=== PATIENT | male | born 1950 | race Caucasian/White ===

== ENCOUNTER 2016-11-17 11:10 | Day surgery (SDC) | payer MEDICARE, MEDICAID ==
--- NOTE | 2016-11-17 09:29 | PCM.OPNOTE ---
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 Ascending colon polyp 2. Transverse colon polyp 3. Sigmoid colon polyp EBL in mLs: 1 Complications: None Condition: Good Free Text/Narrative:: FLUIDS: 600 mL crystalloid INDICATION FOR PROCEDURE: The patient is a 66-year-old man who was referred to me by Dr. Lele Merritt for surveillance colonoscopy for a history of multiple adenomatous colon polyps, including a tubulovillous adenoma with dysplasia at 55 cm. Performing a surveillance colonoscopy and the associated risks of the procedure had been discussed with the patient. The patient found these risks acceptable and agreed to proceed. DESCRIPTION OF PROCEDURE: The patient was taken to the operating room and placed in left lateral decubitus position. After induction of adequate sedation , a digital rectal exam was performed which was unremarkable. An adult Olympus colonoscope was inserted into the rectum and guided under direct visualization to the appendiceal orifice and ileocecal valve. The scope was then slowly withdrawn through the colon. The quality of the prep was good. There was no evidence of angiodysplasias or diverticulum. There were three small polyps noted in the ascending, transverse, and sigmoid colon, they were all removed with cold forceps. The scope was withdrawn into the rectum and retroflexed. There were Grade I internal hemorrhoids. The scope was straightened, the colon was desufflated, and the scope was withdrawn. The patient was awakened from sedation and transferred to the recovery room in stable condition having tolerated the procedure well. POSTOPERATIVE PLAN: A letter will be sent regarding pathology and when his next colonoscopy should be performed. He is to resume his Coumadin in 3 days. He make take Aspirin starting today.
[~2016-11-17 11:10] MED LIST: Lactated Ringers 1,000 ML IV SCH; Lidocaine 1%/Sod Bicarbonate in NS 8.4% 1 ML Syringe IV PRN; Sodium Chloride 0.9% 10 ML Syringe FLUSH PRN
[2016-11-17] MEDS ORDERED: Midazolam 1 MG/ML 2 ML SDV ONE (11:25)
[2016-11-17] MEDS ORDERED: fentaNYL 100 MCG/2 ML SDV ONE (11:26)
[2016-11-17] MEDS ORDERED: Lidocaine 1% 2 ML ONE ×3 (11:26→11:27)
[2016-11-17] MEDS ORDERED: Propofol 200 MG/20 ML SDV ONE (11:27)
--- NOTE | 2016-11-17 11:46 | PCM.PREANE ---
Preanesthetic Assessment - Anesthesia/Transfusion/Family Hx Anesthesia History: Prior Anesthesia Without Reaction Family History of Anesthesia Reaction: No Transfusion History: No Prior Transfusion(s) Intubation History: Unknown - Review of Systems General: No Symptoms Pulmonary: No Symptoms (Former smoker quit 2009/ history of ETOH abuse) Cardiovascular: No Symptoms (atrial fibrillation/ history of cardioversion May 2015/history of HTN) Gastrointestinal: No symptoms (history of adenometous colon polyp) Neurological: No Symptoms (chronic lower back pain) Other: Reports: Easy Bleeding (on coumadin for atrial fibrillation), Easy Bruising, Neck Pain - Physical Assessment NPO Status Date: 11/16/16 NPO Status Time: 21:00 Pulse: 72 O2 Sat by Pulse Oximetry: 94 Respiratory Rate: 16 Blood Pressure: 146/91 Temperature: 35.9 C Height: 1.78 m Weight: 109 kg ASA Class: 2 Mental Status: Alert & Oriented x3 Airway Class: Mallampati = 1 Dentition: Reports: Partial (upper and lower.) Thyro-Mental Finger Breadths: 3 Mouth Opening Finger Breadths: 3 Lungs: Clear to auscultation, Normal respiratory effort Cardiovascular: Regular Rate, Regular Rhythm - Imaging/EKG Impressions: EKG (2014): sinus rhythm borderline left axis deviation Echo (2014): EF 50-55%, Mildly dilated left atrium. - Allergies Allergies/Adverse Reactions: Allergies Allergy/AdvReac Type Severity Reaction Status Date / Time No Known Allergies Allergy Verified 11/16/16 14:45 - Anesthesia Plan Pre-Op Medication Ordered: Beta Oli Beta Oli: Metoprolol Med Last Dose Date: 11/16/16 Med Last Dose Time: 21:00 - Acknowledgements Anesthesia Type Planned: MAC Pt an Appropriate Candidate for the Planned Anesthesia: Yes Alternatives and Risks of Anesthesia Discussed w Pt/Guardian: Yes Pt/Guardian Understands and Agrees with Anesthesia Plan: Yes PreAnesthesia Questionnaire HEENT History: Reports: Other (See Below) Other HEENT History: partials Cardiovascular History: Reports: Afib, High Cholesterol, Hypertension Respiratory History: Reports: None Gastrointestinal History: Reports: Other (See Below) Other Gastrointestinal History: tubular adenoma Genitourinary History: Reports: None [employer] 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 Musculoskeletal History: Reports: Back Pain, Chronic Neurological History: Reports: None Psychiatric History: Reports: Other (See Below) Other Psychiatric History: ETOH abx Endocrine/Metabolic History: Reports: None Hematologic History: Reports: None Immunologic History: Reports: None Oncologic (Cancer) History: Reports: None Dermatologic History: Reports: Other (See Below) Other Dermatologic History: lipoma and inclusion cyst removed - Past Surgical History Head Surgeries/Procedures: Reports: None Cardiovascular Surgical History: Reports: Other (See Below) Other Cardiovascular Surgeries/Procedures: cardioversion GI Surgical History: Reports: Colonoscopy - SUBSTANCE USE Smoking Status *Q: Former Smoker Days Per Week of Alcohol Use: 4 Number of Drinks Per Day: 3 Total Drinks Per Week: 12 Recreational Drug Use History: No - HOME MEDS Home Medications: Home Meds Aspirin [Ecotrin] 81 mg PO DAILY 11/16/16 [History] Chlorthalidone 25 mg PO DAILY 11/16/16 [History] Enalapril [Vasotec] 5 mg PO DAILY 11/16/16 [History] Metoprolol Succinate 50 mg PO DAILY 11/16/16 [History] Multivitamin [Poly-Vitamin] 1 tab PO DAILY 11/16/16 [History] Psyllium Husk/Aspartame [Metamucil Fiber Singles Packet] 1 dose PO DAILY [History] Simvastatin [Simvastatin] 40 mg PO DAILY 11/16/16 [History] Warfarin [Coumadin] 2.5 mg PO MOFR 11/16/16 [History] Warfarin [Coumadin] 5 mg PO SUTUWETHSA 11/16/16 [History] - CURRENT (IN HOUSE) MEDS Current Meds: Current Medications Lactated Ringer's (Ringers, Lactated) 1,000 mls @ 125 mls/hr IV ASDIRECTED RON Stop: 11/17/16 23:00 Lidocaine/Sodium Bicarbonate (Buffered Lidocaine 1% In Ns 8.4%) 0.25 ml IV ONETIME PRN PRN Reason: Prior to IV Start Stop: 11/17/16 18:00 Sodium Chloride (Saline Flush) 10 ml FLUSH ASDIRECTED PRN PRN Reason: Keep Vein Open Stop: 11/17/16 18:00 Discontinued Medications Fentanyl (Sublimaze) Confirm Administered Dose 100 mcg .ROUTE .STK-MED ONE Stop: 11/17/16 11:27 Lidocaine HCl (Xylocaine-Mpf 1%) Confirm Administered Dose 2 mls @ as directed .ROUTE .STK-MED ONE Stop: 11/17/16 11:27 Lidocaine HCl (Xylocaine-Mpf 1%) Confirm Administered Dose 2 mls @ as directed .ROUTE .STK-MED ONE Stop: 11/17/16 11:27 Lidocaine HCl (Xylocaine-Mpf 1%) Confirm Administered Dose 2 mls @ as directed .ROUTE .STK-MED ONE Stop: 11/17/16 11:28 Midazolam HCl (Versed 1 Mg/Ml) Confirm Administered Dose 2 mg .ROUTE .STK-MED ONE Stop: 11/17/16 11:26 Propofol (Diprivan 20 Ml) Confirm Administered Dose 200 mg .ROUTE .STK-MED ONE Stop: 11/17/16 11:28
--- NOTE | 2016-11-17 13:13 | PCM48HPAN ---
Post Anesthesia Note - EVALUATION WITHIN 48HRS OF ANESTHETIC Vital Signs in Normal Range: Yes Patient Participated in Evaluation: Yes Respiratory Function Stable: Yes Airway Patent: Yes Cardiovascular Function Stable: Yes Hydration Status Stable: Yes Pain Control Satisfactory: Yes Nausea and Vomiting Control Satisfactory: Yes Mental Status Recovered: Yes
[2016-11-17 14:04] VITALS: BP 114/61
== END 2016-11-17 13:55 | disposition home or self-care (01) ==
LOC: JD.SDS 11:10
PROVIDERS: ATTEND Surgery
DX: Z12.11 Encounter for screening for malignant neoplasm of colon (principal); K64.8 Other hemorrhoids; F10.10 Alcohol abuse, uncomplicated; I10 Essential (primary) hypertension; E78.2 Mixed hyperlipidemia; I48.0 Paroxysmal atrial fibrillation; Z86.010 Personal history of colon polyps; Z98.890 Other specified postprocedural states; Z79.01 Long term (current) use of anticoagulants; Z79.82 Long term (current) use of aspirin; Z79.899 Other long term (current) drug therapy; Z87.891 Personal history of nicotine dependence
CPT/HCPCS: 36415; 85610; 88305; G0105; J2250; J3010; J7120; J2704

== ENCOUNTER 2018-10-23 00:28 | Inpatient (IN) | payer MEDICARE, MEDICAID ==
[2018-10-23] MEDS ORDERED: Adenosine 6 MG/2 ML SDV ONE (00:38)
[2018-10-23] MEDS ORDERED: Adenosine 12 MG/4 ML SDV ONE (00:47)
--- NOTE | 2018-10-23 01:06 | EDM.PDOC ---
ED HPI GENERAL MEDICAL PROBLEM - General Stated Complaint: [facility] ambulance Time Seen by Provider: 10/23/18 00:38 Source of Information: Reports: Patient, RN Notes Reviewed History Limitations: Reports: No Limitations - History of Present Illness INITIAL COMMENTS - FREE TEXT/NARRATIVE: The patient is brought to the ED by EMS from [facility]. The patient states that he developed heartburn around 23:30, while trying to sleep. Paperwork from [facility] provides a past medical history, but no input as to what prompted them to send the patient to the ED. The patient denies having recent chest pain, palpitations, dyspnea, nausea, or vomiting. He reports feeling diaphoretic about 30 minutes prior to arrival to the ED, and he mentions that he feels like he needs to have a bowel movement. No prior similar symptoms. Upon arrival to the ED, his initial ECG indicates that the patient is in SVT at 160 bpm. The patient has not been to this ED in the past, but paperwork from [facility] indicates that he has a history of paroxysmal atrial fibrillation. 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 His medical record indicates that he is on Eliquis, digoxin, and metoprolol, among other medicines. The patient is DNR/DNI. The patient's PCP is Dr. Clifford. Left Back Pain Score (Numeric/FACES): 6 - Related Data Allergies Allergy/AdvReac Type Severity Reaction Status Date / Time No Known Allergies Allergy Verified 10/23/18 00:59 Home Meds: Home Meds Aspirin [Ecotrin] 81 mg PO DAILY 11/16/16 [History] Enalapril [Vasotec] 5 mg PO DAILY 11/16/16 [History] Metoprolol Succinate 50 mg PO DAILY 11/16/16 [History] Simvastatin 40 mg PO DAILY 11/16/16 [History] Acetaminophen 650 mg PO Q6HR PRN 10/23/18 [History] Apixaban [Eliquis] 5 mg PO BID 10/23/18 [History] Bisacodyl [Dulcolax] 10 mg RECTAL ONETIME PRN 10/23/18 [History] Dexamethasone 4 mg PO DAILY 10/23/18 [History] Diclofenac Sodium [Voltaren 1% Gel] 2 gm TOP BID 10/23/18 [History] Digoxin 25 mcg PO DAILY 10/23/18 [History] Diphenhyd/Lidocaine/Nystatin [Magic Mouthwash] 10 ml PO TID 10/23/18 [History] Ibuprofen 400 mg PO Q8H 10/23/18 [History] Insulin Detemir [Levemir Flextouch] 15 units SQ BEDTIME 10/23/18 [History] Ipratropium [place] 1 dose INH Q4H PRN 10/23/18 [History] Ipratropium [place] 1 dose INH TID 10/23/18 [History] Levalbuterol HCl [Xopenex] 3 ml PO TID 10/23/18 [History] Morphine [Morphine 20 MG/ML Soln] 0.25 ml PO Q2H PRN 10/23/18 [History] Multivit-Min/FA/Lycopene/Lut [Certavite Sr-Antioxidant Tab] 1 tab PO DAILY 10/23 [History] Polyethylene Glycol 3350 [MiraLAX] 17 gm PO DAILY 10/23/18 [History] fentaNYL [Duragesic] 150 mcg TOP Q72H 10/23/18 [History] Past Medical History HEENT History: Reports: Other (See Below) Other HEENT History: partials Cardiovascular History: Reports: Afib (paroxysmal), High Cholesterol, Hypertension Gastrointestinal History: Reports: Colon Polyp Musculoskeletal History: Reports: Fracture (thoracic compression fracture) Psychiatric History: Reports: Addiction (alcohol) Endocrine/Metabolic History: Reports: Diabetes, Type II Oncologic (Cancer) History: Reports: Lung (with metastases to bone) - Past Surgical History Cardiovascular Surgical History: Reports: Other (See Below) (Right Port-A-Cath) GI Surgical History: Reports: Colonoscopy Social & Family History - Tobacco Use Smoking Status *Q: Former Smoker Years of Tobacco use: 21 Packs/Tins Daily: 1 Month/Year Tobacco Last Used: Quit 1988 - Alcohol Use Alcohol Use History: Yes - Recreational Drug Use Recreational Drug Use: No - Living Situation & Occupation Living situation: Reports: , Extended Care Facility ([facility] assisted) Occupation: Retired ED ROS GENERAL - Review of Systems Review Of Systems: ROS reveals no pertinent complaints other than HPI. ED EXAM, GENERAL - Physical Exam Exam: See Below Exam Limited By: No Limitations General Appearance: Alert, WD/WN, No Apparent Distress Eye Exam: Bilateral Eye: EOMI, Normal Inspection Ears: Normal External Exam, Hearing Loss Nose: Normal Inspection Throat/Mouth: Normal Inspection, Normal Lips, Normal Voice, No Airway Compromise Head: Atraumatic, Normocephalic Neck: Normal Inspection, Full Range of Motion Respiratory/Chest: No Respiratory Distress, No Accessory Muscle Use, Decreased Breath Sounds, Wheezing (expiratory), Other (Barrel chest. Right Port-A-Cath.). No: Crackles, Rhonchi, Stridor, Prolonged Expiration Cardiovascular: No Edema, No Gallop, No JVD, No Murmur, No Rub, Tachycardia ( regular), Other (Thready peripheral pulse) Peripheral Pulses: 1+: Radial (L), Radial (R) GI/Abdominal: Normal Bowel Sounds, Soft, No Organomegaly, No Distention, No Abnormal Bruit, No Mass, Tender (Mild, generalized, non-focal) (Male) Exam: Deferred Rectal (Males) Exam: Deferred Extremities: Normal Inspection, Normal Range of Motion, No Pedal Edema, Normal Capillary Refill Neurological: Alert, Oriented, Normal Cognition, No Motor/Sensory Deficits Psychiatric: Normal Affect Skin Exam: Warm, Intact, Normal Color, No Rash, Diaphoretic EKG INTERPRETATION EKG Date: 10/23/18 Time: 00:33 Rhythm: Other (SVT) Rate (Beats/Min): 160 [place]: Normal P-Wave: Absent QRS: Normal (Normal transition) ST-T: Depressed (accanic-xjllynrr-jrrbqib) QT: Normal Comparison: NA - No Prior EKG Course - Vital Signs Last Recorded V/S: Last Vital Signs Temp 36.3 C 10/23/18 03:37 Pulse 104 H 10/23/18 03:37 Resp 24 H 10/23/18 03:37 BP 90/55 L 10/23/18 03:37 Pulse Ox 96 10/23/18 04:29 - Orders/Labs/Meds Orders: Active Orders 24 hr Category Date Time Status Admission Status [Patient Status] [ADT] Routine ADT 10/23/18 02:04 Active CULTURE BLOOD [BC] Stat Lab 10/23/18 01:55 Received CULTURE BLOOD [BC] Stat Lab 10/23/18 02:00 Received Blood Culture x2 Reflex Set [OM.PC] Stat Oth 10/23/18 01:41 Ordered Medication Orders Acetaminophen (Tylenol) 650 mg PO Q6H PRN PRN Reason: Pain/Fever Last Admin: 10/23/18 03:22 Dose: 650 mg Sodium Chloride (Normal Saline) 1,000 mls @ 150 mls/hr IV ASDIRECTED RON Metoprolol Tartrate (Lopressor) 5 mg IVPUSH Q4H PRN PRN Reason: Tachycardia Labs: Laboratory Tests 10/23/18 10/23/18 10/23/18 Range/Units 00:53 00:53 01:55 WBC 15.73 H (4.23-9.07) K/mm3 RBC 3.89 L (4.63-6.08) M/mm3 Hgb 11.1 L (13.7-17.5) gm/L Hct 36.2 L (40.1-51.0) % MCV 93.1 H (79.0-92.2) fl MCH 28.5 (25.7-32.2) pg MCHC 30.7 L (32.2-35.5) g/dl RDW Std Deviation 61.4 H (35.1-43.9) fL Plt Count 262 (163-337) K/mm3 MPV 9.6 (9.4-12.3) fl Neutrophils % (Manual) 92 H (40-60) % Band Neutrophils % 3 (0-10) % Lymphocytes % (Manual) 5 L (20-40) % Atypical Lymphs % 0 % Immat Monocytes % (Man) 0 Monocytes % (Manual) 0 L (2-10) % Eosinophils % (Manual) 0 L (0.8-7.0) % Basophils % (Manual) 0 L (0.2-1.2) Metamyelocytes % 0 Myelocytes % 0 Promyelocytes % 0 Blast Cells % 0 Plasma Cell % (Manual) 0 Nucleated RBCs 0.0 % Platelet Estimate Adequate RBC Morph Comment Normal Sodium 138 (136-145) mEq/L Potassium 4.4 (3.5-5.1) mEq/L Chloride 100 (98-107) mEq/L Carbon Dioxide 28 (21-32) mEq/L Anion Gap 14.4 (5-15) BUN 27 H (7-18) mg/dL Creatinine 0.6 L (0.7-1.3) mg/dL Est Cr Clr Drug Dosing 123.36 mL/min Estimated GFR (MDRD) > 60 (>60) mL/min BUN/Creatinine Ratio 45.0 H (14-18) Glucose 231 H (80-115) mg/dL Lactic Acid 1.9 (0.4-2.0) mmol/L Calcium 8.9 (8.5-10.1) mg/dL Magnesium 1.8 (1.8-2.4) mg/dl Total Bilirubin 0.3 (0.2-1.0) mg/dL AST 43 H (15-37) U/L ALT 38 (16-63) U/L Alkaline Phosphatase 125 H (46-116) U/L Troponin I < 0.017 (0.00-0.056) ng/mL Total Protein 6.0 L (6.4-8.2) g/dl Albumin 2.0 L (3.4-5.0) g/dl Globulin 4.0 gm/dL Albumin/Globulin Ratio 0.5 L (1-2) Meds: Medications Generic Name Dose Route Start Last Admin Trade Name Freq PRN Reason Stop Dose Admin Acetaminophen 650 mg 10/23/18 02:21 10/23/18 03:22 Tylenol PO 650 mg Q6H PRN Administration Pain/Fever Sodium Chloride 1,000 mls @ 150 mls/hr 10/23/18 05:00 Normal Saline IV ASDIRECTED RON Metoprolol Tartrate 5 mg 10/23/18 02:21 Lopressor IVPUSH Q4H PRN Tachycardia Discontinued Medications Generic Name Dose Route Start Last Admin Trade Name Freq PRN Reason Stop Dose Admin Adenosine Confirm 10/23/18 00:38 10/23/18 01:10 Adenocard Administered 10/23/18 00:39 Not Given Dose 6 mg .ROUTE .STK-MED ONE Adenosine Confirm 10/23/18 00:47 10/23/18 01:10 Adenocard Administered 10/23/18 00:48 Not Given Dose 12 mg .ROUTE .STK-MED ONE Adenosine 12 mg 10/23/18 01:14 10/23/18 00:51 Adenocard IVPUSH 10/23/18 01:15 6 mg NOW ONE Administration Sodium Chloride 500 mls @ 1,000 mls/hr 10/23/18 01:09 10/23/18 01:13 Normal Saline IV 10/23/18 01:38 1,000 mls/hr .BOLUS ONE Administration Azithromycin 500 mg/ Sodium 250 mls @ 250 mls/hr 10/23/18 01:42 10/23/18 03: 20 Chloride IV 10/23/18 02:41 250 mls/hr ONETIME ONE Administration Ceftriaxone Sodium 1 gm/ 100 mls @ 200 mls/hr 10/23/18 01:42 10/23/18 02:04 Sodium Chloride IV 10/23/18 02:11 200 mls/hr ONETIME ONE Administration Sodium Chloride 500 mls @ 1,000 mls/hr 10/23/18 02:02 10/23/18 03:25 Normal Saline IV 10/23/18 02:31 Not Given .BOLUS ONE Sodium Chloride 1,000 mls @ 999 mls/hr 10/23/18 02:21 10/23/18 03:30 Normal Saline IV 10/23/18 03:21 250 mls/hr ONETIME ONE Infusion Sodium Chloride 1,000 mls @ 999 mls/hr 10/23/18 03:21 Normal Saline IV 10/23/18 04:21 ONETIME ONE - Re-Assessments/Exams Free Text/Narrative Re-Assessment/Exam: 10/23/18 00:58 An ECG at the time of arrival indicated SVT at 160 bpm. The patient was given 6 mg of adenosine via his right Port-A-Cath with minimal, if any, discernible underlying atrial activity until a sinus tachycardia developed. 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 The post-adenosine ECG, obtained at 00: 51, demonstrates some ST depressions in the lateral leads, concerning for ischemia. 10/23/18 01:35 Portable chest radiograph reviewed. The cardiac silhouette is within normal limits. No pulmonary vascular congestion. No obvious pleural effusion on the left, but a pleural effusion cannot be excluded on the right, as there is a right lower lobe infiltrate that obscures the right hemidiaphragm. No pneumothorax. Right Port-A-Cath noted. Formal read per the Radiologist pending. The patient is known to have right sided lung cancer, which is likely responsible for the right lower lobe opacity, however, the patient's WBC count is elevated at 15.73 with 3% bandemia, raising the possibility of pneumonia. Additionally, the patient's BP was low upon presentation, which was not unreasonable, given his elevated heart rate, however, it has remained low despite conversion to a sinus rhythm. These findings are concerning for sepsis, therefore I have ordered a lactic acid level and 2 sets of blood cultures, with one of the sets to be obtained via his Port-A-Cath. I will start the patient on empiric ceftriaxone and azithromycin once the blood cultures have been obtained. He is already receiving an IV fluid bolus. 10/23/18 01:[address] Bhatia at 01:45. She accepted the patient for admission to telemetry. 10/23/18 02:03 The patient's systolic blood pressure mary ann about 10 mmHg following a 500 mL bolus of NS. I have ordered a second 500 mL bolus. Departure - Departure Time of Disposition: 01:50 Disposition: Admitted As Inpatient 66 Condition: Fair Clinical Impression: SVT (supraventricular tachycardia), Hypotension, Right lower lobe pulmonary infiltrate, Leukocytosis, Hyperglycemia due to type 2 diabetes mellitus - My Orders Last 24 Hours: My Active Orders 10/23/18 01:41 Blood Culture x2 Reflex Set [OM.PC] Stat 10/23/18 01:55 CULTURE BLOOD [BC] Stat 10/23/18 02:00 CULTURE BLOOD [BC] Stat 10/23/18 02:04 Admission Status [Patient Status] [ADT] Routine - Assessment/Plan Last 24 Hours: My Active Orders 10/23/18 01:41 Blood Culture x2 Reflex Set [OM.PC] Stat 10/23/18 01:55 CULTURE BLOOD [BC] Stat 10/23/18 02:00 CULTURE BLOOD [BC] Stat 10/23/18 02:04 Admission Status [Patient Status] [ADT] Routine
[2018-10-23] MEDS ORDERED: Sodium Chloride 0.9% 500 ML IV ONE ×2 (01:09→02:02)
[2018-10-23] MEDS ORDERED: Adenosine 6 MG/2 ML SDV IVPUSH ONE ×2 (01:10→01:14)
[2018-10-23] MEDS ORDERED: cefTRIAXone 1 GM in Sodium Chloride 0.9% 100 ML IV ONE (01:42)
[2018-10-23] MEDS ORDERED: Azithromycin 500 MG in Sodium Chloride 0.9% 250 ML IV ONE (01:42)
[2018-10-23] MEDS ORDERED: Metoprolol Tartrate 5 MG/5 ML SDV IVPUSH PRN (02:21)
[2018-10-23] MEDS ORDERED: Sodium Chloride 0.9% 1,000 ML IV ONE ×2 (02:21→03:21)
[2018-10-23] MEDS ORDERED: Acetaminophen 325 MG Tab PO PRN ×2 (02:21→08:47)
--- NOTE | 2018-10-23 05:51 | CR ---
Chest: Portable supine view of the chest was obtained. Comparison: No prior chest x-ray is available. Heart is slightly enlarged. Tortuous thoracic aorta is seen. Right-sided infusion catheter is seen. Diffuse increased lung markings are seen. More focal density is noted within the right perihilar region and right lung base. Bony structures are osteopenic. Healing left clavicle fracture is noted. Osteolytic lesion is noted within the right scapula inferior to glenoid. Difficult to exclude minimal pleural effusions. Impression: 1. Increased central lung markings. Difficult to exclude pulmonary vascular congestion. Uncertain how much of this is chronic without old studies. 2. More focal density within the right perihilar and right lower lung base. Difficult to exclude mass or even chronic change or pneumonia. 3. Lytic lesion appears to be present within the right scapula below the glenoid. Healing fracture is noted within the left clavicle. Diagnostic code #9
[2018-10-23] MEDS: Sodium Chloride 0.9% 1,000 ML IV SCH ×4 (06:15→20:43)
--- NOTE | 2018-10-23 06:31 | PCM.HP ---
H&P History of Present Illness - General Date of Service: 10/23/18 Admit Problem/Dx: Admission Diagnosis/Problem Admission Diagnosis/Problem Supraventricular tachycardia Source of Information: Patient, Old Records, Provider, RN, RN Notes Reviewed History Limitations: Reports: No Limitations - History of Present Illness Initial Comments - Free Text/Narative: Jose Khan presents to our ED via ambulance from [facility] in the very early hours of 10/23/18. He reports that he developed heartburn around 20/09/29 while trying to sleep. There is no accompanying paperwork from [facility] indicating why he was sent to the ED. Denies recent chest pain, palpitations , dyspnea, nausea, vomiting. Reports he started to feel diaphoretic about 30 units prior to ED arrival reports he feels like exam a bowel movement. He's never had symptoms like this in the past. Initial EKG in the ED shows SVT at a rate of 160 bpm. [facility] paperwork indicates the patient has a history of paroxysmal A. fib along with right lung cancer which hasn't metastasized to the bone. He is chronically on 4 L of oxygen continuously in the ED temperature 35.8 Celsius. Pulse 150. Respirations 20. Blood pressure 62/48. Pulse ox 94%. Labs are obtained: WBC is elevated at 15.73. Hemoglobin 11.1. Hematocrit 36.2. He is macrocytic. Pulses are good at 262,000. Neutrophils are elevated at 92%. There is 3% band neutrophils noted. Sodium was 138. Potassium 4.4. Chloride 100. Copaxone 28. Anion gap 14.4. BUN is 27. Creatinine 0.6. EGFR greater than 60. Glucose is 231. Calcium 8.9. Magnesium 1.8. AST is 43, ALT 38, alkaline phosphatase 125. Troponin is negative at less than 0.017. Protein 6.0. Albumin is quite low at 2.0. He started on 1 g Rocephin and 500 mg azithromycin. He does have a catheter in place and this was accessed. He was given 6 mg of adenosine an attempt to convert his SVT. This had minimal effect and therefore 12 mg was given. EKG is obtained after adenosine showing some ST depression lateral leads. Lactic acid was obtained and was 1.9. Blood cultures were also obtained. He is given 2 500 mL boluses for his hypotension. Chest x-ray is obtained showing "1. Increased central lung markings. Difficult to exclude pulmonary vascular congestion. Uncertain how much of this is chronic without old studies. 2. More focal density within the right perihilar and right lower lung base. Difficult to exclude mass or even chronic change or pneumonia. 3. Lytic lesion appears to be present within the right scapula below the glenoid. Healing fractures noted within the left clavicle." He carries a history of paroxysmal A. fib, HLD, hypertension, thoracic compression fractures, alcohol addiction, type 2 diabetes, right lung cancer with metastasis to the bone. He does have a Port-A-Cath in place. His resident of [facility]. He is a former smoker. His PCP is Dr. Merritt. Left Back Pain Score (Numeric/FACES): 6 - Related Data Allergies/Adverse Reactions: Allergies Allergy/AdvReac Type Severity Reaction Status Date / Time No Known Allergies Allergy Verified 10/23/18 00:59 Home Medications: Home Meds Aspirin [Ecotrin] 81 mg PO DAILY 11/16/16 [History] Enalapril [Vasotec] 5 mg PO DAILY 11/16/16 [History] Metoprolol Succinate 50 mg PO DAILY 11/16/16 [History] Simvastatin 40 mg PO DAILY 11/16/16 [History] Acetaminophen 650 mg PO Q6HR PRN 10/23/18 [History] Apixaban [Eliquis] 5 mg PO BID 10/23/18 [History] Bisacodyl [Dulcolax] 10 mg RECTAL ONETIME PRN 10/23/18 [History] Dexamethasone 4 mg PO DAILY 10/23/18 [History] Diclofenac Sodium [Voltaren 1% Gel] 2 gm TOP BID 10/23/18 [History] Diclofenac Sodium [Voltaren 1%] 4 gm TOP BID PRN 10/23/18 [History] Digoxin 125 mcg PO DAILY 10/23/18 [History] Diphenhyd/Lidocaine/Nystatin [Magic Mouthwash] 10 ml PO TID 10/23/18 [History] Ibuprofen 400 mg PO Q8H PRN 10/23/18 [History] Insulin Detemir [Levemir Flextouch] 15 units SQ BEDTIME 10/23/18 [History] Ipratropium [place] 1 dose INH Q4H PRN 10/23/18 [History] Ipratropium [place] 1 dose INH TID 10/23/18 [History] Levalbuterol HCl [Xopenex] 1 ampule NEB Q4HRRT PRN 10/23/18 [History] Levalbuterol HCl [Xopenex] 3 ml PO TID 10/23/18 [History] Morphine [Morphine 20 MG/ML Soln] 0.25 ml PO Q2H PRN 10/23/18 [History] Multivit-Min/FA/Lycopene/Lut [Certavite Sr-Antioxidant Tab] 1 tab PO DAILY 10/23 [History] Polyethylene Glycol 3350 [MiraLAX] 17 gm PO DAILY 10/23/18 [History] fentaNYL [Duragesic] 150 mcg TOP Q72H 10/23/18 [History] Past Medical History HEENT History: Reports: Other (See Below) Other HEENT History: Dentures: partials Cardiovascular History: Reports: Afib, High Cholesterol, Hypertension Respiratory History: Reports: SOB, Other (See Below) Other Respiratory History: Chronic Oxygen use 2-4 L/NC. Lung Cancer Gastrointestinal History: Reports: Colon Polyp Other Gastrointestinal History: tubular adenoma Genitourinary History: Reports: None DENTAL SCHEDULING COORDINATOR History: Reports: None Musculoskeletal History: Reports: Back Pain, Chronic, Fracture Other Musculoskeletal History: in Thoracic Region. Neurological History: Reports: None Psychiatric History: Reports: Addiction Other Psychiatric History: ETOH and nicotine abuse Endocrine/Metabolic History: Reports: Diabetes, Type II Hematologic History: Reports: None Immunologic History: Reports: None Oncologic (Cancer) History: Reports: Bone, Colon, Lung, Metastatic Dermatologic History: Reports: Other (See Below) Other Dermatologic History: lipoma and inclusion cyst removed - Past Surgical History Head Surgeries/Procedures: Reports: None Cardiovascular Surgical History: Reports: Other (See Below) Other Cardiovascular Surgeries/Procedures: cardioversion GI Surgical History: Reports: Colonoscopy Social & Family History - Tobacco Use Smoking Status *Q: Former Smoker Years of Tobacco use: 40 Packs/Tins Daily: 1 Used Tobacco, but Quit: Yes Month/Year Tobacco Last Used: 2017 - Caffeine Use Caffeine Use: Reports: Coffee - Recreational Drug Use Recreational Drug Use: No - Living Situation & Occupation Living situation: Reports: , Extended Care Facility ([facility]) Occupation: Retired H&P Review of Systems - Review of Systems: Review Of Systems: See Below General: Reports: Malaise, Weakness. Denies: Fever, Chills, Fatigue HEENT: Reports: No Symptoms. Denies: Headaches, Sinus Congestion Pulmonary: Reports: Pleuritic Chest Pain. Denies: Shortness of Breath, Wheezing , Cough, Sputum Cardiovascular: Reports: No Symptoms. Denies: Chest Pain, Palpitations, Dyspnea on Exertion, Orthopnea, Edema Gastrointestinal: Reports: No Symptoms. Denies: Abdominal Pain, Constipation, Diarrhea, Nausea, Vomiting Genitourinary: Reports: No Symptoms Musculoskeletal: Reports: Muscle Pain (Generalized ), Other (Generalized bone pain ) Skin: Reports: No Symptoms Psychiatric: Reports: No Symptoms. Denies: Confusion Neurological: Reports: No Symptoms Hematologic/Lymphatic: Reports: No Symptoms Exam - Exam Exam: See Below - Vital Signs Vital Signs: Last Vital Signs Temp 97.3 F 10/23/18 03:37 Pulse 104 H 10/23/18 03:37 Resp 24 H 10/23/18 03:37 BP 90/55 L 10/23/18 03:37 Pulse Ox 96 10/23/18 04:29 Weight: 164 lb - Exam Quality Assessment: Supplemental Oxygen, DVT Prophylaxis General: Alert, Oriented, Cooperative, Mild Distress HEENT: Conjunctiva Clear, EACs Clear, EOMI, Hearing Intact, Mucosa Moist & [place] , Normal Nasal Septum, Posterior Pharynx Clear, PERRLA Neck: Supple, Trachea Midline Lungs: Normal Respiratory Effort, Decreased Breath Sounds Cardiovascular: Regular Rate, Regular Rhythm GI/Abdominal Exam: Normal Bowel Sounds, Soft, Non-Tender, No Organomegaly, No Distention (Male) Exam: Deferred Rectal (Males) Exam: Deferred Back Exam: Normal Inspection, Decreased Range of Motion Extremities: Normal Inspection, Normal Range of Motion, Non-Tender, No Pedal Edema, Normal Capillary Refill Peripheral Pulses: 2+: Radial (L), Radial (R), Dorsalis Pedis (L), Dorsalis Pedis (R) Skin: Warm, Dry, Intact Neurological: Cranial Nerves Intact (grossly ) - Patient Data Lab Results Last 24 hrs: Laboratory Results - last 24 hr 10/23/18 10/23/18 10/23/18 Range/Units 00:53 00:53 01:55 WBC 15.73 H (4.23-9.07) K/mm3 RBC 3.89 L (4.63-6.08) M/mm3 Hgb 11.1 L (13.7-17.5) gm/L Hct 36.2 L (40.1-51.0) % MCV 93.1 H (79.0-92.2) fl MCH 28.5 (25.7-32.2) pg MCHC 30.7 L (32.2-35.5) g/dl RDW Std Deviation 61.4 H (35.1-43.9) fL Plt Count 262 (163-337) K/mm3 MPV 9.6 (9.4-12.3) fl Neutrophils % (Manual) 92 H (40-60) % Band Neutrophils % 3 (0-10) % Lymphocytes % (Manual) 5 L (20-40) % Atypical Lymphs % 0 % Immat Monocytes % (Man) 0 Monocytes % (Manual) 0 L (2-10) % Eosinophils % (Manual) 0 L (0.8-7.0) % Basophils % (Manual) 0 L (0.2-1.2) Metamyelocytes % 0 Myelocytes % 0 Promyelocytes % 0 Blast Cells % 0 Plasma Cell % (Manual) 0 Nucleated RBCs 0.0 % Platelet Estimate Adequate RBC Morph Comment Normal Sodium 138 (136-145) mEq/L Potassium 4.4 (3.5-5.1) mEq/L Chloride 100 (98-107) mEq/L Carbon Dioxide 28 (21-32) mEq/L Anion Gap 14.4 (5-15) BUN 27 H (7-18) mg/dL Creatinine 0.6 L (0.7-1.3) mg/dL Est Cr Clr Drug Dosing 123.36 mL/min Estimated GFR (MDRD) > 60 (>60) mL/min BUN/Creatinine Ratio 45.0 H (14-18) Glucose 231 H (80-115) mg/dL Lactic Acid 1.9 (0.4-2.0) mmol/L Calcium 8.9 (8.5-10.1) mg/dL Magnesium 1.8 (1.8-2.4) mg/dl Total Bilirubin 0.3 (0.2-1.0) mg/dL AST 43 H (15-37) U/L ALT 38 (16-63) U/L Alkaline Phosphatase 125 H (46-116) U/L Troponin I < 0.017 (0.00-0.056) ng/mL Total Protein 6.0 L (6.4-8.2) g/dl Albumin 2.0 L (3.4-5.0) g/dl Globulin 4.0 gm/dL Albumin/Globulin Ratio 0.5 L (1-2) Mycoplasma pneumon IgM (NEGATIVE) 10/23/18 Range/Units 02:21 WBC (4.23-9.07) K/mm3 RBC (4.63-6.08) M/mm3 Hgb (13.7-17.5) gm/L Hct (40.1-51.0) % MCV (79.0-92.2) fl MCH (25.7-32.2) pg MCHC (32.2-35.5) g/dl RDW Std Deviation (35.1-43.9) fL Plt Count (163-337) K/mm3 MPV (9.4-12.3) fl Neutrophils % (Manual) (40-60) % Band Neutrophils % (0-10) % Lymphocytes % (Manual) (20-40) % Atypical Lymphs % % Immat Monocytes % (Man) Monocytes % (Manual) (2-10) % Eosinophils % (Manual) (0.8-7.0) % Basophils % (Manual) (0.2-1.2) Metamyelocytes % Myelocytes % Promyelocytes % Blast Cells % Plasma Cell % (Manual) Nucleated RBCs % Platelet Estimate RBC Morph Comment Sodium (136-145) mEq/L Potassium (3.5-5.1) mEq/L Chloride (98-107) mEq/L Carbon Dioxide (21-32) mEq/L Anion Gap (5-15) BUN (7-18) mg/dL Creatinine (0.7-1.3) mg/dL Est Cr Clr Drug Dosing mL/min Estimated GFR (MDRD) (>60) mL/min BUN/Creatinine Ratio (14-18) Glucose (80-115) mg/dL Lactic Acid (0.4-2.0) mmol/L Calcium (8.5-10.1) mg/dL Magnesium (1.8-2.4) mg/dl Total Bilirubin (0.2-1.0) mg/dL AST (15-37) U/L ALT (16-63) U/L Alkaline Phosphatase (46-116) U/L Troponin I (0.00-0.056) ng/mL Total Protein (6.4-8.2) g/dl Albumin (3.4-5.0) g/dl Globulin gm/dL Albumin/Globulin Ratio (1-2) Mycoplasma pneumon IgM Negative (NEGATIVE) Result Diagrams: 10/23/18 00:53 10/23/18 00:53 - Problem List (1) End of life care SNOMED Code(s): 924509793, 304297120 ICD Code: Z51.5 - ENCOUNTER FOR PALLIATIVE CARE Status: Acute Priority: High Current Visit: Yes (2) Brain lesion SNOMED Code(s): 837693480 ICD Code: G93.9 - DISORDER OF BRAIN, UNSPECIFIED Status: Acute Priority: High Current Visit: Yes (3) Lytic bone lesions on xray SNOMED Code(s): 569840993 ICD Code: M89.9 - DISORDER OF BONE, UNSPECIFIED Status: Acute Priority: High Current Visit: Yes (4) Hilar mass SNOMED Code(s): 366365398 ICD Code: R91.8 - OTHER NONSPECIFIC ABNORMAL FINDING OF LUNG FIELD Status: Acute Priority: High Current Visit: Yes (5) Pleural effusion SNOMED Code(s): 55046775 ICD Code: J90 - PLEURAL EFFUSION, NOT ELSEWHERE CLASSIFIED Status: Acute Priority: High Current Visit: Yes (6) Adrenal nodule SNOMED Code(s): 471176627 ICD Code: E27.9 - DISORDER OF ADRENAL GLAND, UNSPECIFIED Status: Acute Priority: High Current Visit: Yes (7) Hyperglycemia due to type 2 diabetes mellitus SNOMED Code(s): 130339024262910, 540685346564202 ICD Code: E11.65 - TYPE 2 DIABETES MELLITUS WITH HYPERGLYCEMIA Status: Acute Priority: Medium Current Visit: Yes Qualifiers: Diabetes mellitus rn long term care insulin use: unspecified rn long term care insulin use status Qualified Code(s): E11.65 - Type 2 diabetes mellitus with hyperglycemia (8) Hypotension SNOMED Code(s): 39970248 ICD Code: I95.9 - HYPOTENSION, UNSPECIFIED Status: Acute Priority: High Current Visit: Yes Qualifiers: Hypotension type: unspecified hypotension type Qualified Code(s): I95.9 - Hypotension, unspecified (9) Leukocytosis SNOMED Code(s): 838641348, 231728124 ICD Code: D72.829 - ELEVATED WHITE BLOOD CELL COUNT, UNSPECIFIED Status: Acute Priority: High Current Visit: Yes Qualifiers: Leukocytosis type: unspecified Qualified Code(s): D72.829 - Elevated white blood cell count, unspecified (10) SVT (supraventricular tachycardia) SNOMED Code(s): 4786860 ICD Code: I47.1 - SUPRAVENTRICULAR TACHYCARDIA Status: Resolved Current Visit: No Problem List Initiated/Reviewed/Updated: Yes Orders Last 24hrs: Active Orders 24 hr Category Date Time Status Admission Status [Patient Status] [ADT] Routine ADT 10/23/18 02:04 Active Communication Order [RC] BID Care 10/23/18 02:21 Active Oxygen Therapy [RC] ASDIRECTED Care 10/23/18 04:29 Active CULTURE BLOOD [BC] Stat Lab 10/23/18 01:55 Received CULTURE BLOOD [BC] Stat Lab 10/23/18 02:00 Received METH-RESIST S.AUR,MRSA BY PCR [MOLEC] Routine Lab 10/23/18 05:31 Ordered RESPIRATORY PANEL Routine Lab 10/23/18 02:21 Ordered Acetaminophen [Tylenol] Med 10/23/18 02:21 Active 650 mg PO Q6H PRN Metoprolol Tartrate [Lopressor] Med 10/23/18 02:21 Active 5 mg IVPUSH Q4H PRN Sodium Chloride 0.9% [Normal Saline] 1,000 ml Med 10/23/18 05:00 Active IV ASDIRECTED Blood Culture x2 Reflex Set [OM.PC] Stat Oth 10/23/18 01:41 Ordered Resuscitation Status Routine Resus Stat 10/23/18 02:28 Ordered Medication Orders Acetaminophen (Tylenol) 650 mg PO Q6H PRN PRN Reason: Pain/Fever Last Admin: 10/23/18 03:22 Dose: 650 mg Sodium Chloride (Normal Saline) 1,000 mls @ 150 mls/hr IV ASDIRECTED RON Metoprolol Tartrate (Lopressor) 5 mg IVPUSH Q4H PRN PRN Reason: Tachycardia Assessment/Plan Comment:: I/P: Acute: End of life care -Patient presents to ED due to SVT and is thought to have possible infiltrate as well. -Chest CT scan on 10/23/18: * 1. Numerous lytic rib lesions with soft tissue masses seen on both sides of the chest as noted above * 2. Lytic lesion with soft tissue mass with numerous vertebral bodies most severe at T11 and T12 with paravertebral extension as well as extension into the central canal causing central canal stenosis * 3. Right hilar mass as noted above. Small subpleural nodules right middle lobe possibly metastatic. * 4. Small to moderate-sized bilateral pleural effusions causing compressive atelectasis. * 5. Numerous mediastinal lymph nodes which are abnormal. * 6. Small adrenal nodule with differential including small metastatic lesion versus benign adrenal adenoma. * 7. Lytic lesion with soft tissue mass involving the right scapula. * 8. Other incidental findings as noted above. -Head CT obtained 10/23/18: * 1. 1.0 cm right frontal calvarial lesion. This may represent benign skull lesion versus solitary skull metastasis. * 2. Mild generalized atrophy is seen. No acute intracranial abnormalities identified. * 3. Sinus findings which are felt to be incidental. -Discussed findings with patient and girlfriend. He requests to be made comfort care. -Patient requests hospice consult and would like to go on hospice when he returns to SNF -Will discontinue antibiotics as well as PT/OT. -Pain medications as ordered. -Continue when necessary respiratory treatments. -CM/SW consult -Spiritual care consult -Reportedly stopped chemotherapy a few months ago -Port-a-cath present in right chest -Discontinue lab draws Hypotension -BP 62/48 in ED -Likely exacerbated by SVT -Given two 500mL fluid boluses -Given 2L on floor -IV fluids as ordered Resolved: SVT -Presented to ED with "heartburn" which stared around 2330 -Was found to be in SVT with HR at 160 -Hx/o paroxysmal a-fib -6mg and 12mg adenosine given with conversion -Sinus rhythm on floor. Chronic: Paroxysmal A-fib HLD HTN Colyn Polyps Hx/O ETOH addiction Type II DM Lung cancer wiht metastasis to bone Plan: Admit to medical floor inpatient on telemetry Other orders as indicated above Home medications as ordered PT/OT -> discontinue Code status: DNR/DNI/Comfort care; PCP: Dr. Clifford
[2018-10-23] MEDS ORDERED: Acetaminophen/HYDROcodone 325-5 MG Tab PO PRN (08:44)
[2018-10-23] MEDS ORDERED: Ondansetron 4 MG/2 ML SDV IV PRN (08:44)
[2018-10-23] MEDS ORDERED: Albuterol/Ipratropium 3.0-0.5 MG/3 ML Neb Soln NEB PRN (08:44)
[2018-10-23] MEDS ORDERED: Docusate Sodium 100 MG Cap PO PRN (08:44)
[2018-10-23] MEDS ORDERED: Bisacodyl 5 MG Tab PO PRN (08:44)
[2018-10-23] MEDS ORDERED: Polyethylene Glycol 3350 Powder 17 GM Packet PO PRN (08:44)
[2018-10-23] MEDS ORDERED: Bisacodyl 10 MG Supp RECTAL PRN (08:47)
[2018-10-23] MEDS ORDERED: Ipratropium 0.02% 0.5 MG/2.5 ML Neb Soln INH PRN (08:47)
[2018-10-23] MEDS ORDERED: Ipratropium 0.02% 0.5 MG/2.5 ML Neb Soln INH SCH (09:00)
[2018-10-23] MEDS ORDERED: Ibuprofen 400 MG Tab PO SCH (09:00)
[2018-10-23] MEDS: Levalbuterol HCl 0.63 MG/3 ML Neb NEB SCH ×3 (09:51→20:34)
[2018-10-23] MEDS: Ipratropium 0.02% 0.5 MG/2.5 ML Neb Soln INH SCH ×3 (09:51→20:34)
[2018-10-23] MEDS: Ibuprofen 400 MG Tab PO PRN ×2 (10:00→20:45)
[2018-10-23] MEDS: Apixaban 5 MG Tab PO SCH ×2 (10:00→20:45)
[2018-10-23] MEDS: Metoprolol Succinate 50 MG Tab.ER PO SCH (10:00)
[2018-10-23] MEDS: Digoxin 125 MCG Tab PO SCH (10:00)
[2018-10-23] MEDS: Aspirin 81 MG Tab.EC PO SCH (10:00)
[2018-10-23] MEDS ORDERED: fentaNYL 75 MCG/HR Transdermal Patch TOP SCH (10:00)
[2018-10-23] MEDS: Dexamethasone 4 MG Tab PO SCH (10:00)
[2018-10-23] MEDS ORDERED: Magnesium Sulfate/Water 2 GM in Premix Bag 1 BAG IV ONE (10:47)
[2018-10-23] MEDS: Diphenhydramine/Lidocaine/MagAl/Simethicone 119 ML Bottle PO SCH ×3 (11:07→20:45)
[2018-10-23] MEDS: Diclofenac Sodium 1% Gel 100 GM Tube TOP SCH ×2 (11:07→20:45)
[2018-10-23] MEDS ORDERED: Sodium Chloride 0.9% 10 ML Syringe FLUSH ONE (12:39)
[2018-10-23] MEDS ORDERED: Iopamidol 755 Mg/ML 200 ML Bottle IV ONE ×2 (12:39→13:57)
[2018-10-23] MEDS ORDERED: Sodium Chloride 0.9% 10 ML Syringe FLUSH PRN (13:57)
--- NOTE | 2018-10-23 15:09 | CT ---
Head CT Technique: Multiple axial sections through the brain were obtained. Intravenous contrast was not utilized. Findings: Lucency is noted within the right frontal's skull. This measures about 1.0 cm. No other calvarial abnormality is seen. Visualized sinuses show minimal mucosal thickening with left maxillary sinus which is incidental. Slight mucosal thickening is also seen within the anterior left ethmoid sinus which is incidental. Ventricles along with basal cisterns and sulci over the convexities are mildly prominent. No abnormal parenchymal densities are seen. No evidence of intracranial hemorrhage. No midline shift or mass effect is seen. Impression: 1. 1.0 cm right frontal calvarial lesion. This may represent benign skull lesion versus solitary skull metastasis. 2. Mild generalized atrophy is seen. No acute intracranial abnormality is identified. 3. Sinus findings which are felt to be incidental. Diagnostic code #9 Chemical Research Worker called report to Frankie Segura at 15:00 on 10/23/2018
--- NOTE | 2018-10-23 15:09 | CT ---
CT chest Technique: Multiple axial sections through the chest were obtained. Findings: Soft tissue mass is seen within the right shoulder which causes destruction of a portion of the scapula. This soft tissue mass is incompletely seen but measures at least 6.5 cm in size. Destructive rib lesion is also noted within the right sixth rib. This soft tissue mass causing destruction of the rib measures up to 4.2 cm. Old fracture noted within the fifth and seventh ribs. Additional rib destruction is noted within the sixth rib laterally. This soft tissue mass measures about 11.5 cm in greatest dimension. Smaller area of rib destruction seen within the 10th rib laterally. This soft tissue mass measures 4.0 cm in size. Soft tissue mass causing destruction of the vertebral bodies of T11 and T12 is seen. There is paravertebral extension of the soft tissue mass as well as mild extension into the central canal causing some central canal stenosis. Smaller low lytic lesions are seen within the ninth rib with minimal paravertebral extension noted on the right side. Small lytic lesion is seen within the sixth vertebral body. Severe compression deformity noted of T1 which is felt compatible with pathologic fracture. Lytic lesion is noted within C7. Numerous mediastinal lymph nodes are seen which are abnormal. Coronary artery calcification is seen. Right hilar mass is noted most likely neoplastic in etiology measuring approximately 8.4 cm. Small to moderate sized bilateral pleural effusions are seen with bibasilar atelectasis. Emphysematous change is seen within both lungs. Small subpleural nodule noted within the right middle lobe measuring 9 mm possibly due to small metastatic lesion. Small portion of the visualized upper abdominal structures shows a nodule within the right adrenal gland. Impression: 1. Numerous lytic rib lesions with soft tissue masses seen on both sides of the chest as noted above. 2. Lytic lesions with soft tissue mass within numerous vertebral bodies most severe at T11 and T12 with paravertebral extension as well as extension into the central canal causing central canal stenosis. 3. Right hilar mass as noted above. Small subpleural nodules right middle lobe possibly metastatic. 4. Small to moderate sized bilateral pleural effusions causing compressive atelectasis. 5. Numerous mediastinal lymph nodes which are abnormal. 6. Small adrenal nodule with differential including small metastatic lesion versus benign adrenal adenoma. 7. Lytic lesion with soft tissue mass involving the right scapula. 8. Other incidental findings as noted above. Diagnostic code #9 Signals Collector/Analyst called report to Frankie Booke at 14:58 on 10/23/2018
[2018-10-23] MEDS ORDERED: Diclofenac Sodium 1% Gel 100 GM Tube TOP PRN (16:23)
[2018-10-23] MEDS ORDERED: Levalbuterol HCl 0.63 MG/3 ML Neb NEB PRN (16:23)
[2018-10-23] MEDS ORDERED: Morphine Oral Concentrate 20 MG/ML 30 ML Bottle PO PRN (16:23)
[2018-10-23] MEDS: Insulin Lispro 100 Units/ML 3 ML Vial SUBCUT SCH ×2 (16:56→22:00)
[2018-10-23] MEDS ORDERED: Insulin Glarg,Human.Rec.Analog 100 UNIT/ML ML SUBCUT SCH (21:00)
[2018-10-24] MEDS ORDERED: cefTRIAXone 1 GM in Sodium Chloride 0.9% 100 ML IV SCH (01:00)
[2018-10-24] MEDS ORDERED: Azithromycin 250 MG in Sodium Chloride 0.9% 250 ML IV SCH (01:30)
[2018-10-24] MEDS: Ipratropium 0.02% 0.5 MG/2.5 ML Neb Soln INH SCH ×2 (05:23→13:56)
[2018-10-24] MEDS: Levalbuterol HCl 0.63 MG/3 ML Neb NEB SCH ×2 (05:23→13:56)
[2018-10-24] MEDS: Ibuprofen 400 MG Tab PO PRN (06:07)
[2018-10-24] MEDS: Insulin Lispro 100 Units/ML 3 ML Vial SUBCUT SCH ×2 (06:11→11:17)
[2018-10-24] MEDS ORDERED: Morphine 10 MG/0.5 ML Oral Syringe PO PRN (08:27)
[2018-10-24] MEDS: Apixaban 5 MG Tab PO SCH (08:28)
[2018-10-24] MEDS: Metoprolol Succinate 50 MG Tab.ER PO SCH (08:28)
[2018-10-24] MEDS: Dexamethasone 4 MG Tab PO SCH (08:28)
[2018-10-24] MEDS: Digoxin 125 MCG Tab PO SCH (08:28)
[2018-10-24] MEDS: Aspirin 81 MG Tab.EC PO SCH (08:28)
[2018-10-24] MEDS: Diphenhydramine/Lidocaine/MagAl/Simethicone 119 ML Bottle PO SCH (08:29)
[2018-10-24] MEDS: Diclofenac Sodium 1% Gel 100 GM Tube TOP SCH (08:29)
[2018-10-24 08:30] VITALS: BP 112/68
[2018-10-24] MEDS: Sodium Chloride 0.9% 1,000 ML IV SCH (09:51)
--- NOTE | 2018-10-24 12:58 | PCM.DCSUM1 ---
Discharge Summary - Hospital Course HPI Initial Comments: Jose Khan presents to our ED via ambulance from [facility] in the very early hours of 10/23/18. He reports that he developed heartburn around 20/09/29 while trying to sleep. There is no accompanying paperwork from [facility] indicating why he was sent to the ED. Denies recent chest pain, palpitations , dyspnea, nausea, vomiting. Reports he started to feel diaphoretic about 30 units prior to ED arrival reports he feels like exam a bowel movement. He's never had symptoms like this in the past. Initial EKG in the ED shows SVT at a rate of 160 bpm. [facility] paperwork indicates the patient has a history of paroxysmal A. fib along with right lung cancer which hasn't metastasized to the bone. He is chronically on 4 L of oxygen continuously in the ED temperature 35.8 Celsius. Pulse 150. Respirations 20. Blood pressure 62/48. Pulse ox 94%. Labs are obtained: WBC is elevated at 15.73. Hemoglobin 11.1. Hematocrit 36.2. He is macrocytic. Pulses are good at 262,000. Neutrophils are elevated at 92%. There is 3% band neutrophils noted. Sodium was 138. Potassium 4.4. Chloride 100. Copaxone 28. Anion gap 14.4. BUN is 27. Creatinine 0.6. EGFR greater than 60. Glucose is 231. Calcium 8.9. Magnesium 1.8. AST is 43, ALT 38, alkaline phosphatase 125. Troponin is negative at less than 0.017. Protein 6.0. Albumin is quite low at 2.0. He started on 1 g Rocephin and 500 mg azithromycin. He does have a catheter in place and this was accessed. He was given 6 mg of adenosine an attempt to convert his SVT. This had minimal effect and therefore 12 mg was given. EKG is obtained after adenosine showing some ST depression lateral leads. Lactic acid was obtained and was 1.9. Blood cultures were also obtained. He is given 2 500 mL boluses for his hypotension. Chest x-ray is obtained showing "1. Increased central lung markings. Difficult to exclude pulmonary vascular congestion. Uncertain how much of this is chronic without old studies. 2. More focal density within the right perihilar and right lower lung base. Difficult to exclude mass or even chronic change or pneumonia. 3. Lytic lesion appears to be present within the right scapula below the glenoid. Healing fractures noted within the left clavicle." He carries a history of paroxysmal A. fib, HLD, hypertension, thoracic compression fractures, alcohol addiction, type 2 diabetes, right lung cancer with metastasis to the bone. He does have a Port-A-Cath in place. His resident of [facility]. He is a former smoker. His PCP is Dr. Merritt. Diagnosis: Stroke: No - Discharge Data Discharge Date: 10/24/18 (Admit date: 10/23/18) Discharge Disposition: DC/Tfer to [facility] 03 Condition: Stable - Discharge Diagnosis/Problem(s) (1) End of life care SNOMED Code(s): 478062492, 521836127 ICD Code: Z51.5 - ENCOUNTER FOR PALLIATIVE CARE Status: Acute Priority: High Current Visit: Yes (2) Brain lesion SNOMED Code(s): 288784652 ICD Code: G93.9 - DISORDER OF BRAIN, UNSPECIFIED Status: Acute Priority: High Current Visit: Yes (3) Lytic bone lesions on xray SNOMED Code(s): 621286545 ICD Code: M89.9 - DISORDER OF BONE, UNSPECIFIED Status: Acute Priority: High Current Visit: Yes (4) Hilar mass SNOMED Code(s): 590298667 ICD Code: R91.8 - OTHER NONSPECIFIC ABNORMAL FINDING OF LUNG FIELD Status: Acute Priority: High Current Visit: Yes (5) Pleural effusion SNOMED Code(s): 70962746 ICD Code: J90 - PLEURAL EFFUSION, NOT ELSEWHERE CLASSIFIED Status: Acute Priority: High Current Visit: Yes (6) Adrenal nodule SNOMED Code(s): 782612376 ICD Code: E27.9 - DISORDER OF ADRENAL GLAND, UNSPECIFIED Status: Acute Priority: High Current Visit: Yes (7) Hyperglycemia due to type 2 diabetes mellitus SNOMED Code(s): 014623988668405, 509085580344596 ICD Code: E11.65 - TYPE 2 DIABETES MELLITUS WITH HYPERGLYCEMIA Status: Acute Priority: Medium Current Visit: Yes Qualifiers: Diabetes mellitus shelter insulin use: unspecified shelter insulin use status Qualified Code(s): E11.65 - Type 2 diabetes mellitus with hyperglycemia (8) Hypotension SNOMED Code(s): 50598711 ICD Code: I95.9 - HYPOTENSION, UNSPECIFIED Status: Acute Priority: High Current Visit: Yes Qualifiers: Hypotension type: unspecified hypotension type Qualified Code(s): I95.9 - Hypotension, unspecified (9) Leukocytosis SNOMED Code(s): 386421680, 777951863 ICD Code: D72.829 - ELEVATED WHITE BLOOD CELL COUNT, UNSPECIFIED Status: Acute Priority: High Current Visit: Yes Qualifiers: Leukocytosis type: unspecified Qualified Code(s): D72.829 - Elevated white blood cell count, unspecified (10) SVT (supraventricular tachycardia) SNOMED Code(s): 1564803 ICD Code: I47.1 - SUPRAVENTRICULAR TACHYCARDIA Status: Resolved Current Visit: No - Patient Summary/Data Consults: Consultations 10/23/18 08:44 Consult to Case Management/[employer] [CONS] Routine Consult to Spiritual Care [CONS] Routine Respiratory Care Assess and Treatment [CONS] Routine 10/23/18 16:27 Consult to Hospice [CONS] Routine Labs Pending at D/C: None Recommended Follow-up Testing/Procedures: Follow-up with PCP as needed for comfort care. Follow-up with hospice at SNF as discussed. Hospital Course: I/P: Acute: End of life care -Patient presents to ED due to SVT and is thought to have possible infiltrate as well. -Chest CT scan on 10/23/18: * 1. Numerous lytic rib lesions with soft tissue masses seen on both sides of the chest as noted above * 2. Lytic lesion with soft tissue mass with numerous vertebral bodies most severe at T11 and T12 with paravertebral extension as well as extension into the central canal causing central canal stenosis * 3. Right hilar mass as noted above. Small subpleural nodules right middle lobe possibly metastatic. * 4. Small to moderate-sized bilateral pleural effusions causing compressive atelectasis. * 5. Numerous mediastinal lymph nodes which are abnormal. * 6. Small adrenal nodule with differential including small metastatic lesion versus benign adrenal adenoma. * 7. Lytic lesion with soft tissue mass involving the right scapula. * 8. Other incidental findings as noted above. -Head CT obtained 10/23/18: * 1. 1.0 cm right frontal calvarial lesion. This may represent benign skull lesion versus solitary skull metastasis. * 2. Mild generalized atrophy is seen. No acute intracranial abnormalities identified. * 3. Sinus findings which are felt to be incidental. -Discussed findings with patient and girlfriend. He requests to be made comfort care. -Patient requests hospice consult and would like to go on hospice when he returns to SNF -Will discontinue antibiotics as well as PT/OT. -Pain medications as ordered. -Continue when necessary respiratory treatments. -CM/SW consult -Spiritual care consult -Reportedly stopped chemotherapy a few months ago -Port-a-cath present in right chest -Discontinue lab draws Hypotension, Improved -BP 62/48 in ED; Now 112/68 -Likely exacerbated by SVT -Given two 500mL fluid boluses -Given 2L on floor -IV fluids as ordered Resolved: SVT -Presented to ED with "heartburn" which stared around 2330 -Was found to be in SVT with HR at 160 -Hx/o paroxysmal a-fib -6mg and 12mg adenosine given with conversion -Sinus rhythm on floor. Chronic: Paroxysmal A-fib HLD HTN Colyn Polyps Hx/O ETOH addiction Type II DM Lung cancer wiht metastasis to bone Plan: Admit to medical floor inpatient on telemetry Other orders as indicated above Home medications as ordered PT/OT -> discontinue Code status: DNR/DNI/Comfort care; PCP: Dr. Darrin Garcia was admitted with possible pneumonia. His blood pressure was low and he received multiple fluid boluses along with IV fluids he did respond well to this. He had been in SVT in the emergency room and was converted utilizing adenosine. He did not have any episodes of SVT while here. CT scan was obtained of his chest and noted extensive cancer metastasis with significant destruction of vertebrae and ribs. Head CT was also obtained showing a 1 cm right frontal calvarial lesion. These results were communicated with the patient and his girlfriend. He reports he had stopped treatment for his cancer several weeks ago and was expecting these results. We discussed possible options and ultimately he decided to go comfort care. [facility] would [facility] They also requested that all possible treatment for pneumonia be stopped. Home medications were continued for the time being and these can be addressed once hospice is set up. He was on 5 L of oxygen while here, having increased from 4 L while in the ED. Lab draws were stopped. He was discharged back to [facility] today on comfort care. - Patient Instructions Diet: Usual Diet as Tolerated Activity: Bedrest Driving: Do Not Drive Notify Provider of: Fever, Increased Pain, Nausea and/or Vomiting Other/Special Instructions: Resume home medications as ordered. Follow-up with PCP as needed for comfort care. Hospice consult at SNF. Adjust oxygen as needed for comfort. - Discharge Plan *PRESCRIPTION DRUG MONITORING PROGRAM REVIEWED*: No *COPY OF PRESCRIPTION DRUG MONITORING REPORT IN PATIENT RADHA: No Home Medications: Home Meds Aspirin [Ecotrin] 81 mg PO DAILY 11/16/16 [History] Metoprolol Succinate 50 mg PO DAILY 11/16/16 [History] Acetaminophen 650 mg PO Q6HR PRN 10/23/18 [History] Apixaban [Eliquis] 5 mg PO BID 10/23/18 [History] Bisacodyl [Dulcolax] 10 mg RECTAL ONETIME PRN 10/23/18 [History] Dexamethasone 4 mg PO DAILY 10/23/18 [History] Diclofenac Sodium [Voltaren 1% Gel] 2 gm TOP BID 10/23/18 [History] Diclofenac Sodium [Voltaren 1% Gel] 4 gm TOP BID PRN 10/23/18 [History] Digoxin 125 mcg PO DAILY 10/23/18 [History] Diphenhyd/Lidocaine/Nystatin [Magic Mouthwash] 10 ml PO TID 10/23/18 [History] Ibuprofen 400 mg PO Q8H PRN 10/23/18 [History] Ipratropium [place] 1 dose INH Q4H PRN 10/23/18 [History] Ipratropium [place] 1 dose INH TID 10/23/18 [History] Levalbuterol HCl [Xopenex] 1 ampule NEB Q4HRRT PRN 10/23/18 [History] Levalbuterol HCl [Xopenex] 3 ml PO TID 10/23/18 [History] Morphine [Morphine 20 MG/ML Soln] 0.25 ml PO Q2H PRN 10/23/18 [History] Multivit-Min/FA/Lycopene/Lut [Certavite Sr-Antioxidant Tab] 1 tab PO DAILY 10/23 [History] Polyethylene Glycol 3350 [MiraLAX] 17 gm PO DAILY 10/23/18 [History] fentaNYL [Duragesic] 150 mcg TOP Q72H 10/23/18 [History] Oxygen Therapy Mode: Nasal Cannula Oxygen Flow Rate (L/min): 5 Maintain SpO2% greater than: 90 Patient Handouts: Supraventricular Tachycardia, Adult, [id number], Lung Cancer Referrals: Arjun Clifford MD [Physician] - - Discharge Summary/Plan Comment DC Time >30 min.: No - General Info Date of Service: 10/24/18 Admission Dx/Problem (Free Text: Admission Diagnosis/Problem Admission Diagnosis/Problem Supraventricular tachycardia Functional Status: Reports: Pain Controlled, Tolerating Diet, Urinating. Denies : Ambulating, New Symptoms - Review of Systems General: Reports: Weakness, Fatigue, Malaise. Denies: Fever, Chills HEENT: Reports: No Symptoms. Denies: Headaches, Sore Throat Pulmonary: Reports: Shortness of Breath, Cough, Wheezing. Denies: Pleuritic Chest Pain, Sputum Cardiovascular: Reports: No Symptoms. Denies: Chest Pain, Palpitations Gastrointestinal: Reports: No Symptoms. Denies: Abdominal Pain, Constipation, Diarrhea, Nausea, Vomiting Genitourinary: Reports: No Symptoms. Denies: Pain Musculoskeletal: Reports: Neck Pain, Back Pain, Joint Pain Skin: Reports: No Symptoms Neurological: Reports: No Symptoms. Denies: Confusion Psychiatric: Reports: No Symptoms - Patient Data Vitals - Most Recent: Last Vital Signs Temp 97.3 F 10/24/18 08:22 Pulse 107 H 10/24/18 09:51 Resp 20 10/24/18 08:22 BP 112/68 10/24/18 08:28 Pulse Ox 90 L 10/24/18 09:51 Weight - Most Recent: 187 lb 5 oz I&O - Last 24 hours: Intake & Output 10/23/18 10/24/18 10/24/18 22:59 06:59 14:59 Intake Total 1584 1176 120 Output Total 500 Balance 1584 676 120 Lab Results - Last 24 hrs: Laboratory Results - last 24 hr 10/23/18 10/23/18 10/23/18 Range/Units 07:10 14:50 14:50 POC Glucose (80-115) mg/dL Troponin I 0.025 (0.00-0.056) ng/mL NT-Pro-B Natriuret Pep 1550 H (0-125) pg/mL Adenovirus (PCR) Not detected (Not Detected) B. pertussis DNA (PCR) Not detected (Not Detected) B.parapertussis DNA PCR Not detected (Not Detected) C. pneumoniae DNA (PCR) Not detected (Not Detected) Coronavirus (PCR) Not detected (Not Detected) Human Metapneumovir PCR Not detected (Not Detected) Influenza A (RT-PCR) Not detected (Not Detected) Influenza B (RT-PCR) Not detected (Not Detected) M. pneumoniae (PCR) Not detected (Not Detected) Parainfluen 1,2,3,4 PCR Not detected (Not Detected) RSV (PCR) Not detected (Not Detected) Entero/Rhino (PCR) Not detected (Not Detected) 10/23/18 10/23/18 10/24/18 Range/Units 16:54 21:49 06:08 POC Glucose 107 105 85 (80-115) mg/dL Troponin I (0.00-0.056) ng/mL NT-Pro-B Natriuret Pep (0-125) pg/mL Adenovirus (PCR) (Not Detected) B. pertussis DNA (PCR) (Not Detected) B.parapertussis DNA PCR (Not Detected) C. pneumoniae DNA (PCR) (Not Detected) Coronavirus (PCR) (Not Detected) Human Metapneumovir PCR (Not Detected) Influenza A (RT-PCR) (Not Detected) Influenza B (RT-PCR) (Not Detected) M. pneumoniae (PCR) (Not Detected) Parainfluen 1,2,3,4 PCR (Not Detected) RSV (PCR) (Not Detected) Entero/Rhino (PCR) (Not Detected) 10/24/18 Range/Units 11:15 POC Glucose 90 (80-115) mg/dL Troponin I (0.00-0.056) ng/mL NT-Pro-B Natriuret Pep (0-125) pg/mL Adenovirus (PCR) (Not Detected) B. pertussis DNA (PCR) (Not Detected) B.parapertussis DNA PCR (Not Detected) C. pneumoniae DNA (PCR) (Not Detected) Coronavirus (PCR) (Not Detected) Human Metapneumovir PCR (Not Detected) Influenza A (RT-PCR) (Not Detected) Influenza B (RT-PCR) (Not Detected) M. pneumoniae (PCR) (Not Detected) Parainfluen 1,2,3,4 PCR (Not Detected) RSV (PCR) (Not Detected) Entero/Rhino (PCR) (Not Detected) EDWARDO Results - Last 24 hrs: Microbiology 10/23/18 02:00 Aerobic Blood Culture - Preliminary Blood - Venous NO GROWTH AFTER 1 DAY Anaerobic Blood Culture - Preliminary NO GROWTH AFTER 1 DAY 10/23/18 01:55 Aerobic Blood Culture - Preliminary Blood - Venous - Lab Draw NO GROWTH AFTER 1 DAY Anaerobic Blood Culture - Preliminary NO GROWTH AFTER 1 DAY Med Orders - Current: Current Medications Acetaminophen (Tylenol) 650 mg PO Q6H PRN PRN Reason: Pain/Fever Last Admin: 10/23/18 03:22 Dose: 650 mg Hydrocodone Bitart/Acetaminophen ([place] 325-5 Mg) 1 tab PO Q4H PRN PRN Reason: Pain (moderate 4-6) Albuterol/Ipratropium (Duoneb 3.0-0.5 Mg/3 Ml) 3 ml NEB Q4H PRN PRN Reason: Shortness Of Breath/wheezing Apixaban (Eliquis) 5 mg PO BID [facility] Last Admin: 10/24/18 08:28 Dose: 5 mg Aspirin (Halfprin) 81 mg PO DAILY [facility] Last Admin: 10/24/18 08:28 Dose: 81 mg Bisacodyl (Dulcolax) 5 mg PO DAILY PRN PRN Reason: Constipation Bisacodyl (Dulcolax) 10 mg RECTAL ONETIME PRN PRN Reason: Constipation Dexamethasone (Dexamethasone) 4 mg PO DAILY [facility] Last Admin: 10/24/18 08:28 Dose: 4 mg Diclofenac Sodium (Voltaren 1% Gel) 2 gm TOP BID [facility] Last Admin: 10/24/18 08:29 Dose: 2 gm Diclofenac Sodium (Voltaren 1% Gel) 4 gm TOP BID PRN PRN Reason: Pain Last Admin: 10/24/18 06:26 Dose: 4 gram Digoxin (Lanoxin) 125 mcg PO DAILY [facility] Last Admin: 10/24/18 08:28 Dose: 125 mcg Diphenhydr/Magaldrate/Simeth/Lidoca (First-Mouthwash Blm Susp) 10 ml PO TID [facility] Last Admin: 10/24/18 08:29 Dose: 10 ml Docusate Sodium (Colace) 100 mg PO BID PRN PRN Reason: Constipation Fentanyl (Duragesic) 150 mcg TOP Q72H [facility] Last Admin: 10/23/18 09:57 Dose: 150 mcg Sodium Chloride (Normal Saline) 1,000 mls @ 75 mls/hr IV ASDIRECTED [facility] Last Admin: 10/24/18 09:51 Dose: 75 mls/hr Ibuprofen (Motrin) 400 mg PO Q8H PRN PRN Reason: pain Last Admin: 10/24/18 06:07 Dose: 400 mg Insulin Glargine (Lantus) 15 unit SUBCUT BEDTIME [facility] Last Admin: 10/23/18 21:59 Dose: 15 units Insulin Human Lispro (Humalog) 0 unit SUBCUT QIDACANDBED [facility]; Protocol Last Admin: 10/24/18 11:17 Dose: Not Given Ipratropium [place] (Atrovent) 0.5 mg INH Q4H PRN PRN Reason: Shortness of Breath Ipratropium [place] (Atrovent) 0.5 mg INH TIDRT [facility] Last Admin: 10/24/18 05:23 Dose: 0.5 mg Levalbuterol HCl (Xopenex) 0.63 mg NEB TIDRT [facility] Last Admin: 10/24/18 05:23 Dose: 0.63 mg Metoprolol Succinate (Toprol Xl) 50 mg PO DAILY [facility] Last Admin: 10/24/18 08:28 Dose: 50 mg Metoprolol Tartrate (Lopressor) 5 mg IVPUSH Q4H PRN PRN Reason: Tachycardia Miscellaneous Information (Remove Patch) 1 ea TRDERM Q72H [facility] Morphine Sulfate (Morphine 10 Mg/0.5 Ml Oral Syringe) 5 mg PO Q2H PRN PRN Reason: Pain Last Admin: 10/24/18 08:47 Dose: 5 mg Ondansetron HCl (Zofran) 4 mg IV Q6H PRN PRN Reason: Nausea/Vomiting Polyethylene Glycol (Miralax) 17 gm PO DAILY PRN PRN Reason: Constipation Senna/Docusate Sodium (Senna Plus) 1 tab PO BID PRN PRN Reason: Constipation Sodium Chloride (Saline Flush) 10 ml FLUSH ONETIME PRN PRN Reason: IV FLUSH Discontinued Medications Acetaminophen (Tylenol) 650 mg PO Q6H PRN PRN Reason: Pain Adenosine (Adenocard) Confirm Administered Dose 6 mg .ROUTE .K-MED ONE Stop: 10/23/18 00:39 Last Admin: 10/23/18 01:10 Dose: Not Given Adenosine (Adenocard) Confirm Administered Dose 12 mg .ROUTE .STK-MED ONE Stop: 10/23/18 00:48 Last Admin: 10/23/18 01:10 Dose: Not Given Adenosine (Adenocard) 12 mg IVPUSH NOW ONE Stop: 10/23/18 01:15 Last Admin: 10/23/18 00:51 Dose: 6 mg Sodium Chloride (Normal Saline) 500 mls @ 1,000 mls/hr IV .BOLUS ONE Stop: 10/23/18 01:38 Last Admin: 10/23/18 01:13 Dose: 1,000 mls/hr Azithromycin 500 mg/ Sodium (Chloride) 250 mls @ 250 mls/hr IV ONETIME ONE Stop: 10/23/18 02:41 Last Admin: 10/23/18 03:20 Dose: 250 mls/hr Ceftriaxone Sodium 1 gm/ (Sodium Chloride) 100 mls @ 200 mls/hr IV ONETIME ONE Stop: 10/23/18 02:11 Last Admin: 10/23/18 02:04 Dose: 200 mls/hr Sodium Chloride (Normal Saline) 500 mls @ 1,000 mls/hr IV .BOLUS ONE Stop: 10/23/18 02:31 Last Admin: 10/23/18 03:25 Dose: Not Given Sodium Chloride (Normal Saline) 1,000 mls @ 999 mls/hr IV ONETIME ONE Stop: 10/23/18 03:21 Last Infusion: 10/23/18 03:30 Dose: 250 mls/hr Sodium Chloride (Normal Saline) 1,000 mls @ 150 mls/hr IV ASDIRECTED RON Last Admin: 10/23/18 12:44 Dose: 150 mls/hr Sodium Chloride (Normal Saline) 1,000 mls @ 999 mls/hr IV ONETIME ONE Stop: 10/23/18 04:21 Last Admin: 10/23/18 05:15 Dose: 999 mls/hr Azithromycin 250 mg/ Sodium (Chloride) 250 mls @ 250 mls/hr IV Q24H RON Ceftriaxone Sodium 1 gm/ (Sodium Chloride) 100 mls @ 200 mls/hr IV Q24H RON Magnesium Sulfate 2 gm/ Premix 50 mls @ 25 mls/hr IV ONETIME ONE Stop: 10/23/18 12:46 Last Admin: 10/23/18 11:08 Dose: 25 mls/hr Ibuprofen (Motrin) 400 mg PO Q8H RON Last Admin: 10/23/18 18:39 Dose: Not Given Iopamidol (Isovue-370 (76%)) 100 ml IV ONETIME ONE Stop: 10/23/18 12:40 Last Admin: 10/23/18 18:38 Dose: Not Given Iopamidol (Isovue-370 (76%)) 200 ml IV ONETIME ONE Stop: 10/23/18 13:58 Last Admin: 10/23/18 16:55 Dose: Not Given Ipratropium [place] (Atrovent) 0.5 mg INH TID RON Levalbuterol HCl (Xopenex) mg NEB Q4HRRT PRN PRN Reason: Shortness of Breath Miscellaneous Information (Remove Patch) 1 ea TRDERM ONETIME ONE Stop: 10/23/18 09:31 Last Admin: 10/23/18 10:01 Dose: 1 ea Morphine Sulfate (Morphine 20 Mg/Ml Soln) 5 mg PO Q2H PRN PRN Reason: Pain Sodium Chloride (Saline Flush) 10 ml FLUSH ONETIME ONE Stop: 10/23/18 12:40 Last Admin: 10/23/18 16:55 Dose: Not Given - Exam Quality Assessment: Reports: Supplemental Oxygen, DVT Prophylaxis General: Reports: Alert, Oriented, Cooperative, No Acute Distress HEENT: Reports: Pupils Equal, Pupils Reactive, EOMI, Mucous Membr. Moist/[place] Neck: Reports: Supple, Trachea Midline Lungs: Reports: Normal Respiratory Effort, Decreased Breath Sounds, Wheezing Cardiovascular: Reports: Regular Rate, Regular Rhythm GI/Abdominal Exam: Normal Bowel Sounds, Soft, Non-Tender, No Distention, No Abnormal Bruit (Male) Exam: Deferred Rectal (Males) Exam: Deferred Extremities: Normal Inspection, Normal Range of Motion, Non-Tender, No Pedal Edema, Normal Capillary Refill Skin: Reports: Warm, Dry, Intact Neurological: Reports: No New Focal Deficit Psy/Mental Status: Reports: Alert, Normal Affect, Normal Mood
== END 2018-10-24 14:22 | DRG 308 ==
LOC: JD.ED 00:28 → JD.MS 02:04
PROVIDERS: ADMIT Internal Medicine Cardiovascular Disease; ATTEND Internal Medicine Cardiovascular Disease
DX: I47.1 Supraventricular tachycardia (principal); J18.9 Pneumonia, unspecified organism; C34.91 Malignant neoplasm of unspecified part of right bronchus or lung; C79.51 Secondary malignant neoplasm of bone; J90 Pleural effusion, not elsewhere classified; C79.70 Secondary malignant neoplasm of unspecified adrenal gland; C79.31 Secondary malignant neoplasm of brain; C78.00 Secondary malignant neoplasm of unspecified lung; Z79.01 Long term (current) use of anticoagulants; I48.0 Paroxysmal atrial fibrillation; E78.00 Pure hypercholesterolemia, unspecified; I10 Essential (primary) hypertension; E11.65 Type 2 diabetes mellitus with hyperglycemia; E78.5 Hyperlipidemia, unspecified; Z95.828 Presence of other vascular implants and grafts; M54.9 Dorsalgia, unspecified; I95.9 Hypotension, unspecified; D72.829 Elevated white blood cell count, unspecified; R61 Generalized hyperhidrosis; R12 Heartburn; G89.29 Other chronic pain; Z87.891 Personal history of nicotine dependence; Z79.82 Long term (current) use of aspirin; Z79.4 Long term (current) use of insulin; Z79.899 Other long term (current) drug therapy; Z86.010 Personal history of colon polyps; Z99.81 Dependence on supplemental oxygen; Z51.5 Encounter for palliative care; Z66 Do not resuscitate
CPT/HCPCS: 36415; 71045; 80053; 80162; 83605; 83735; 84484; 85007; 85027; 87040 ×2; 93005 ×2; 96361; 96374; 99285; J0153; J7040; 70450; 70450-26; 71250; 71250-26; 82962; 83880; 86738; 87486; 87581; 87632; 87641; 87798; 93010; 94640; 94761; 97161-GP; A9270-GY; J0456; J0696; J1642; J1815-GY; J3475; J7030; J7050; J8540